=== PATIENT | female | born 1995 | race Two or more races ===

== ENCOUNTER 2024-02-02 01:19 | Emergency (ER) | payer MEDICAID, SELFPAY ==
[2024-02-02 01:24] VITALS: BP 133/86; PULSE 98; RESP 16; TEMP 36.8; O2SAT 97; BMI 22.8
--- NOTE | 2024-02-02 02:30 | ED_ITS ---
HPI - Female Genitourinary General Chief complaint: Vaginal Bleeding Stated complaint: post surg complications Time Seen by Provider: 02/02/24 02:07 Source: patient Mode of arrival: ambulatory Limitations: no limitations History of Present Illness ED Provider: swathi GIRON Narrative: Patient is status post cone biopsy of cervix a week ago noticed blackish discharge for last 3 days with mild cramps no active bleeding no fever no chills Related Data Allergies Allergy/AdvReac Type Severity Reaction Status Date / Time fish derived [fish] AdvReac Facial Verified 02/02/24 01:25 Swelling Review of Systems Review of Systems: Yes all other systems are reviewed and are negative PMFSH Social History Social History Advance Directives: No Advance Directives Information Provided: Yes Do you have a plan to hurt others: No Plan Physical Exam Vital Signs: Vital Signs: Last Vital Signs Temp 98.3 F 02/02/24 01:24 Pulse 98 02/02/24 01:24 Resp 16 02/02/24 01:24 BP 133/86 02/02/24 01:24 Pulse Ox 97 02/02/24 01:24 O2 Del Method Room Air 02/02/24 01:24 BMI result Body Mass Index 22.8 Appearance: Alert. Oriented X3. No acute distress. Eyes: No pallor or icterus ENT: Pharynx normal. Oral Mucosa moist Neck: Normal inspection. Neck supple. CVS: Normal heart rate and rhythm. Pulses normal. Respiratory: No respiratory distress. Equal air entry bilateral, Abdomen: Soft and nontender. Bowel sounds are present, no mass palpable, no CVA tenderness pelvis; blackish post cauterized changes of the cervix no active bleeding Skin: Skin warm and dry. Normal skin color. Normal skin turgor. Extremities: No lower extremity edema. No calf tenderness Neuro: Oriented X 3. Discharge Plan Discharge Clinical Impression: Vaginal bleeding Patient Disposition: Home, Self-Care Instructions: Cervical Cone Biopsy (DC) Additional Instructions: Blackish discharges from the cauterization which was done at the time of biopsy Follow up with your advertising operations manager if you noticed bright red blood/ heavy blood clots Print Language: Turkmen
[2024-02-02 02:44] VITALS: BP 133/86; PULSE 98; RESP 16; TEMP 36.8; O2SAT 97
== END 2024-02-02 02:44 | disposition home or self-care (01) ==
PROVIDERS: Emergency Provider Internal Medicine
DX: N93.9 Abnormal uterine and vaginal bleeding, unspecified (principal)
CPT/HCPCS: 99282

== ENCOUNTER 2024-04-07 16:15 | Emergency (ER) | payer MEDICAID, SELFPAY ==
--- NOTE | ~2024-04-07 | US_ITS ---
EXAMINATION: US PELVIS CLINICAL INFORMATION: Right lower quadrant pain COMPARISON: None available. TECHNIQUE: Ultrasound of the pelvis is performed using both transabdominal and transvaginal transducers along with Doppler. Transvaginal imaging is performed due to inadequate visualization transabdominally. FINDINGS: Uterus: The uterus is anteverted and measures 8 x 4.6 x 5.3 cm cm. The double wall endometrial thickness is 1.1 mm. The uterus is smooth in contour and has normal myometrial echogenicity. No visible fibroid. Adnexa: Both ovaries are visualized. There is normal color flow to the adnexa. There is no ovarian torsion. There is trace fluid in the pelvis adjacent to the right adnexa Right ovary measures 3.6 x 3.2 x 1.9 cm cm. Volume 11.4 mL Left ovary measures 3.2 x 1.6 x 2.1 cm. 5.6 mL US/US pelvic and transvaginal IMPRESSION: No significant abnormality. Electronically signed by: Tevin Catherine MD 04/07/2024 08:56 PM EDT
--- NOTE | ~2024-04-07 | US_ITS ---
EXAMINATION: US PELVIS CLINICAL INFORMATION: Right lower quadrant pain COMPARISON: None available. TECHNIQUE: Ultrasound of the pelvis is performed using both transabdominal and transvaginal transducers along with Doppler. Transvaginal imaging is performed due to inadequate visualization transabdominally. FINDINGS: Uterus: The uterus is anteverted and measures 8 x 4.6 x 5.3 cm cm. The double wall endometrial thickness is 1.1 mm. The uterus is smooth in contour and has normal myometrial echogenicity. No visible fibroid. Adnexa: Both ovaries are visualized. There is normal color flow to the adnexa. There is no ovarian torsion. There is trace fluid in the pelvis adjacent to the right adnexa Right ovary measures 3.6 x 3.2 x 1.9 cm cm. Volume 11.4 mL Left ovary measures 3.2 x 1.6 x 2.1 cm. 5.6 mL US/US pelvic ovarian doppler IMPRESSION: No significant abnormality. Electronically signed by: Tevin Catherine MD 04/07/2024 08:56 PM EDT
--- NOTE | ~2024-04-07 | US_ITS ---
EXAMINATION: US APPENDIX CLINICAL INFORMATION: Right lower quadrant pain and nausea COMPARISON: None TECHNIQUE: Ultrasound of the right lower quadrant was performed. FINDINGS: Appendix is not visualized. No lymphadenopathy or fluid collection identified in the right lower quadrant. Visualized liver and right kidney are within normal limits. US/US appendix IMPRESSION: Nonvisualized appendix. Electronically signed by: Bam Slade DO 04/07/2024 09:00 PM EDT
[2024-04-07 16:35] VITALS: BP 119/83; PULSE 86; RESP 14; TEMP 36.4; O2SAT 99; BMI 22.1
--- NOTE | 2024-04-07 16:36 | ED_ITS ---
HPI - Abdominal Pain General Chief Complaint: Abdominal Pain Stated Complaint: nausea Time Seen by Provider: 04/07/24 17:29 History of Present Illness ED Provider: Ines HPI narrative: 28-year-old female presenting for right lower quadrant abdominal pain and nausea. Patient states her symptoms began yesterday evening around 20:00 with cramping right lower quadrant abdominal pain and subsequent nausea. She denies vomiting, dysuria, hematuria, diarrhea fevers, chills, chest pain. She does endorse approximately 3-4 days of urine frequency. Patient is sexually active. Patient states her last menstrual cycle ended at the beginning of this month Related Data Previous Rx's ?Medication ?Instructions ?Recorded cephalexin 500 mg capsule 500 mg PO QID 7 days #28 caps 04/07/24 Allergies Allergy/AdvReac Type Severity Reaction Status Date / Time fish derived [fish] AdvReac Facial Verified 04/07/24 16:37 Swelling Review of Systems Review of Systems Patient endorses lower quadrant abdominal pain, nausea, urine frequency Yes all other systems are reviewed and are negative [facility] Social History Social History Smoked in Last 30 Days: Yes Use of substances other than those prescribed or required for medical reasons: No Advance Directives: No Advance Directives Information Provided: No Physical Exam ED Vital Signs: Vital Signs - 24 hr 04/07/24 16:35 04/07/24 19:11 04/07/24 21:01 Temperature 97.5 F 97.5 F 97.7 F Pulse Rate 86 74 72 Respiratory Rate 14 18 18 Blood Pressure 119/83 124/82 118/82 Pulse Oximetry 99 99 100 Oxygen Delivery Method Room Air Room Air Room Air BMI result Body Mass Index 22.1 Well-appearing female in no acute distress Lungs clear to auscultation bilaterally; unlabored breathing normal S1-S2 regular rate and rhythm Abdomen is soft, nondistended with right lower quadrant tenderness to palpation; no guarding or rebound Course Course Course Narrative: This is an RME: Additional HPI, ROS, PE not included below will be deferred to primary provider. RME assessment and note performed by: Nicolle Membreno PA-C This is a [id number]-female who presents to the ER with complaints of abdominal cramping since yesterday. urinary frequency and urgency for the last 3-4 days. LMP on 03/19. Reports chance of , possible risk of sti Plan: labs, ua, ct/ng, hcg Medical Decision Making Medical Decision Making MDM Narrative: This is a 20-year-old female presenting for right lower quadrant abdominal pain and nausea. I am concerned for the following; UTI, nephrolithiasis, ovarian cyst/ruptured cyst, gastroenteritis -less likely appendicitis, torsion however will obtain appropriate imaging to rule out these diagnoses -lab work ordered in triage notable for electrolytes within normal limits, normal creatinine, negative HCG, normal white count -I ordered transvaginal ultrasound -I do not appreciate free fluid on patient's appendix and pelvic/transvaginal ultrasound. On radiologist interpretation appendix not visualized however no surrounding lymphadenopathy or fluid collection noted and ovaries were well visualized with good flow -on reassessment patient reports improvement in his symptoms -given lack of white count and labs within normal limits this is less likely appendicitis. I do not feel that patient requires CT imaging -UA concerning for UTI with greater than 50 WBCs -ceftriaxone ordered and I sent a script for Keflex the patient's pharmacy -patient instructed to follow up with her outpatient provider and I gave her strict return precautions Differential Diagnosis Differential Diagnoses: The differential diagnosis associated with the presentation includes Gastroenteritis, UTI, nephrolithiasis, ovarian cyst/ruptured cyst Lab Data 04/07/24 16:47 04/07/24 16:47 Labs: Lab Results 04/07/24 04/07/24 Range/Units 16:47 17:39 WBC 10.0 (4.8-10.8) X10*3/uL RBC 4.23 (4.20-5.50) X10*6/uL Hgb 12.0 (12.0-16.0) g/dl Hct 36.4 L (37.0-47.0) % MCV 86.1 (80.0-98.0) fL MCH 28.4 (27.0-33.0) pg MCHC 33.0 (31.0-35.0) g/dl RDW 14.6 (11.0-16.0) % Plt Count 304 (160-400) X10*3/uL MPV 9.7 (9.4-12.3) fL Immature Gran % (Auto) 0.3 (0.0-0.4) % Neut % (Auto) 66.9 (45-73) % Lymph % (Auto) 25.8 (20-40) % [place] % (Auto) 5.8 (2-11) % Eos % (Auto) 0.9 (0-4) % Baso % (Auto) 0.3 (0-2) % Lymph # (Auto) 2.6 (1.2-4.9) X10*3/uL [place] # (Auto) 0.6 (0.1-1.2) X10*3/uL Eos # (Auto) 0.1 (0.0-0.4) X10*3/uL Baso # (Auto) 0.0 (0.0-0.2) X10*3/uL Abs Immat Gran (auto) 0.03 (0.00-0.03) X10*3/uL Absolute Neuts (auto) 6.7 (2.0-8.3) x10*3/uL Absolute Nucleated RBC 0.000 (0.0-0.012) X10*3/uL Nucleated RBC % (auto) 0.0 (0.0-0.2) /100WBC Sodium 138 (135-145) mmol/L Potassium 4.0 (3.3-5.1) mmol/L Chloride 107 (96-108) mmol/L Carbon Dioxide 24 (22-29) mmol/L Anion Gap 11 L (12-20) BUN 11 (9-16) mg/dL Creatinine 0.68 (0.5-1.4) mg/dL Estim Creat Clear Calc 110.8 Estimated GFR > 60 Random Glucose 93 (60-115) mg/dL Calcium 9.7 (8.4-10.2) mg/dL Total Bilirubin 0.2 (0.0-1.0) mg/dL Direct Bilirubin < 0.2 (0.0-0.5) mg/dL AST 25 (5-31) U/L ALT 13 (0-31) U/L Alkaline Phosphatase 125 H (39-117) U/L Total Protein 7.4 (6.5-8.0) g/dL Albumin 4.1 (3.5-5.0) g/dL Beta HCG, Quant < 2 mIU/mL Urine Color Yellow Urine Appearance Clear Urine pH 6.5 (5.0-9.0) Ur Specific [place] 1.015 (1.005-1.025) Urine Protein Negative (Neg-Trace) mg/dL Urine Glucose (UA) Negative (Negative) mg/dL Urine Ketones Negative (Negative) mg/dL Urine Blood Trace H (Negative) Urine Nitrite Negative (Negative) Ur Leukocyte Esterase Small (1+) H (Negative) Urine RBC 6-10 H (0-2) /HPF Urine WBC >50 H (0-5) /HPF Ur Squamous Epith Cells 0-2 (0-2) /HPF Urine Bacteria None Seen (None Seen) Hyaline Casts 0-2 (0-2) /LPF Chlam trachomat DNA PCR NOT DETECTED (Not Detect.) N.gonorrhoeae DNA (PCR) NOT DETECTED (Not Detect.) Medications Administered Discontinued Medications Generic Name Dose Route Start Last Admin Trade Name Freq PRN Reason Stop Dose Admin Ceftriaxone Sodium 1 gm 04/07/24 21:14 04/07/24 21:24 Ceftriaxone Sodium 1 Gm Vial IVPUSH 04/07/24 21:15 1 gm ONCE ONE Administration Ketorolac Tromethamine 15 mg 04/07/24 17:57 04/07/24 18:08 Ketorolac Tromethamine 15 Mg/Ml Vial IVPUSH 04/07/24 17:58 15 mg ONCE ONE Administration Ondansetron HCl 4 mg 04/07/24 17:57 04/07/24 18:08 Ondansetron Hcl 4 Mg/2 Ml Vial IVPUSH 04/07/24 17:58 4 mg ONCE ONE Administration Discharge Plan Discharge Clinical Impression: Urinary tract infection Patient Disposition: Home, Self-Care Prescriptions: New cephalexin 500 mg capsule 500 mg PO QID 7 Days Qty: 28 0RF Print Language: Moroccan
[2024-04-07 16:55] LABS: MANUAL DIFF FLAG NO
[2024-04-07 16:56] LABS: Basophils Percent Auto 0.3 % (0-2); Eosinophils Absolute Auto 0.1 X10*3/uL (0.0-0.4); Eosinophils Percent Auto 0.9 % (0-4); Hematocrit 36.4 % (37.0-47.0); Imm Gran Abs Auto 0.03 X10*3/uL (0.00-0.03); Imm Gran Pct Auto 0.3 % (0.0-0.4); Lymphocytes Absolute Auto 2.6 X10*3/uL (1.2-4.9); Lymphocytes Percent Auto 25.8 % (20-40); Mean Corpuscular Hemoglobin 28.4 pg (27.0-33.0); Mean Corpuscular Volume 86.1 fL (80.0-98.0); Mean Platelet Volume 9.7 fL (9.4-12.3); Monocytes Absolute Auto 0.6 X10*3/uL (0.1-1.2); Monocytes Percent Auto 5.8 % (2-11); Neutrophils Absolute Auto 6.7 x10*3/uL (2.0-8.3); Neutrophils Percent Auto 66.9 % (45-73); Platelet Count 304 X10*3/uL (160-400); Red Blood Count 4.23 X10*6/uL (4.20-5.50); Red Cell Distribution Width 14.6 % (11.0-16.0)
[2024-04-07 17:20] LABS: Alanine Aminotransferase 13 U/L (0-31); Albumin Level 4.1 g/dL (3.5-5.0); Alkaline Phosphatase 125 U/L (39-117); Anion Gap 11 (12-20); Aspartate Amino Transferase 25 U/L (5-31); Bilirubin Direct < 0.2 mg/dL (0.0-0.5); Bilirubin Total 0.2 mg/dL (0.0-1.0); Blood Urea Nitrogen 11 mg/dL (9-16); Calcium 9.7 mg/dL (8.4-10.2); Carbon Dioxide 24 mmol/L (22-29); Chloride 107 mmol/L (96-108); Creatinine Clr Calc Pharmacy 110.8; Estimated Glomerular Filt Rate > 60; Glucose Random 93 mg/dL (60-115); HCG Quantitative < 2 mIU/mL; Sodium 138 mmol/L (135-145); Total Protein 7.4 g/dL (6.5-8.0)
[2024-04-07 17:51] LABS: Appearance Urine Clear; Color Urine Yellow; Glucose Urine UA Negative (Negative); Leukocyte Esterase Urine Small (1+) (Negative); Nitrite Urine Negative (Negative); PH 6.5 (5.0-9.0); Specific Gravity - Urine 1.015 (1.005-1.025); UMIC TRIGGER UACC YES; Urine Blood Trace (Negative); Urine Ketones Negative (Negative); Urine Protein Negative (Neg-Trace)
[2024-04-07] MEDS: ondansetron HCL 4 MG/2 ML VIAL IVPUSH (18:08)
[2024-04-07] MEDS: Ketorolac Tromethamine 15 MG/ML VIAL IVPUSH (18:08)
[2024-04-07 18:31] LABS: CT PCR NOT DETECTED (Not Detect.); NG PCR NOT DETECTED (Not Detect.)
[2024-04-07 18:34] LABS: Bacteria Urine None Seen (None Seen); Hyaline Casts Urine 0-2 /LPF (0-2); Squamous Epithelial Cell Urine 0-2 /HPF (0-2); UACC Culture Trigger YES; WBC Urine >50 /HPF (0-5)
--- NOTE | 2024-04-07 19:01 | PC.NURSE ---
report received from Gabi RAMOS, assume care of pt at this time
[2024-04-07 19:11] VITALS: BP 124/82; PULSE 74; RESP 18; TEMP 36.4; O2SAT 99
[2024-04-07 21:01] VITALS: BP 118/82; PULSE 72; RESP 18; TEMP 36.5; O2SAT 100
[2024-04-07] MEDS: cefTRIAXone sodium 1 GM VIAL IVPUSH (21:24)
[2024-04-07 22:03] VITALS: BP 118/82; PULSE 72; RESP 18; TEMP 36.2; O2SAT 100
== END 2024-04-07 22:04 | disposition home or self-care (01) ==
PROVIDERS: Physician Assistant Medical; Emergency Provider Student in an Organized Health Care Education/Training Program
DX: N39.0 Urinary tract infection, site not specified (principal); R10.31 Right lower quadrant pain
CPT/HCPCS: 36415; 76705; 76830; 76856; 80048; 80076; 81001; 84702; 85025; 87086; 87491; 87591; 93975; 96374; 96375; 99284; J0696; J1885; J2405

== ENCOUNTER → 2024-04-23 21:56 | Outpatient (BNV) | payer MEDICAID, SELFPAY | PROVIDERS: Emergency Provider Emergency Medicine; Visit Provider Internal Medicine Cardiovascular Disease | DX: R00.0 Tachycardia, unspecified (principal) | CPT/HCPCS: 93010 ==

== ENCOUNTER 2024-04-23 21:57 | Emergency (ER) | payer MEDICAID, SELFPAY ==
--- NOTE | 2024-04-23 | ECG_ITS ---
Test Reason : CHEST PAIN Blood Pressure : / mmHG Vent. Rate : 114 BPM Atrial Rate : 114 BPM P-R Int : 146 ms QRS Dur : 074 ms QT Int : 320 ms P-R-T Axes : 066 076 052 degrees QTc Int : 441 ms Sinus tachycardia Otherwise normal ECG No previous ECGs available Referred By: Generic ED Physician Electronically Signed By:DIONNE LOPEZ MD
--- NOTE | ~2024-04-23 | XR_ITS ---
EXAMINATION: XR CHEST CLINICAL INFORMATION: Chest pain COMPARISON: None available. TECHNIQUE: Frontal view of the chest was obtained. FINDINGS: No significant abnormality is noted involving the heart, lungs, mediastinum, bony thorax or soft tissues. XR/XR chest 1V IMPRESSION: Unremarkable examination. Electronically signed by: Bam Slade DO 04/23/2024 10:55 PM [facility]
[2024-04-23 22:06] VITALS: BP 126/79; PULSE 118; RESP 20; TEMP 36.6; O2SAT 98; BMI 20.7
[2024-04-23 22:23] LABS: MANUAL DIFF FLAG NO
[2024-04-23 22:25] LABS: Basophils Percent Auto 0.3 % (0-2); Eosinophils Absolute Auto 0.2 X10*3/uL (0.0-0.4); Eosinophils Percent Auto 1.5 % (0-4); Hematocrit 38.3 % (37.0-47.0); Hemoglobin 12.9 g/dl (12.0-16.0); Imm Gran Abs Auto 0.03 X10*3/uL (0.00-0.03); Imm Gran Pct Auto 0.2 % (0.0-0.4); Lymphocytes Percent Auto 15.8 % (20-40); Mean Corpuscular HGB Conc 33.7 g/dl (31.0-35.0); Mean Corpuscular Hemoglobin 28.4 pg (27.0-33.0); Mean Corpuscular Volume 84.4 fL (80.0-98.0); Mean Platelet Volume 9.7 fL (9.4-12.3); Monocytes Absolute Auto 0.7 X10*3/uL (0.1-1.2); Monocytes Percent Auto 5.9 % (2-11); Neutrophils Absolute Auto 9.5 x10*3/uL (2.0-8.3); Neutrophils Percent Auto 76.3 % (45-73); Platelet Count 386 X10*3/uL (160-400); Red Blood Count 4.54 X10*6/uL (4.20-5.50); Red Cell Distribution Width 14.9 % (11.0-16.0); White Blood Count 12.4 X10*3/uL (4.8-10.8)
[2024-04-23 22:38] LABS: Alanine Aminotransferase 17 U/L (0-31); Albumin Level 4.2 g/dL (3.5-5.0); Alkaline Phosphatase 124 U/L (39-117); Anion Gap 15 (12-20); Aspartate Amino Transferase 24 U/L (5-31); Bilirubin Total 0.2 mg/dL (0.0-1.0); Blood Urea Nitrogen 11 mg/dL (9-16); Calcium 9.4 mg/dL (8.4-10.2); Carbon Dioxide 25 mmol/L (22-29); Chloride 105 mmol/L (96-108); Creatinine Clr Calc Pharmacy 113.5; Estimated Glomerular Filt Rate > 60; Glucose Random 122 mg/dL (60-115); Potassium 3.7 mmol/L (3.3-5.1); Sodium 141 mmol/L (135-145); Total Protein 7.8 g/dL (6.5-8.0)
[2024-04-23 22:46] LABS: Troponin-I High Sensitivity < 2.7 ng/L (<3.5-17.0)
[2024-04-23 23:01] LABS: Influenza A PCR NEGATIVE (Negative); Influenza B PCR NEGATIVE (Negative); Resp Syncy Virus RNA Qual PCR NEGATIVE (Negative); SARS COV2 PCR INHOUSE NEGATIVE (Negative)
[2024-04-24] VITALS: BP 112/82; PULSE 96; RESP 18; TEMP 36.4; O2SAT 97
--- NOTE | 2024-04-24 00:04 | ED_ITS ---
HPI - Chest Pain General Chief Complaint: Chest Pain Stated Complaint: Chest Pain Time Seen by Provider: 04/24/24 00:04 History of Present Illness ED Provider: Jitendra GIRON narrative: The patient is a 28-year-old female who is generally in fairly good health. She says she has had a cold for about 3 or 4 days. She has been coughing a lot. It is mostly a dry cough. Occasionally she produces a small amount of green sputum. No definite fevers. Tonight she was lying on her bed when she developed a pain in her right upper chest that is worse when she breathes or coughs. She was concerned about this pain and came to the emergency room for evaluation. No pain or swelling in her legs. She is not on control pills or any other hormonal medications. The patient says that she normally lives in [place], [place]. She is currently staying at a group home in this area. She is in the emergency room with her small child. Related Data Previous Rx's ?Medication ?Instructions ?Recorded cephalexin 500 mg capsule 500 mg PO QID 7 days #28 caps 04/07/24 ibuprofen 400 mg tablet 400 mg PO Q6H PRN pain #14 tabs 04/24/24 Allergies Allergy/AdvReac Type Severity Reaction Status Date / Time fish derived [fish] AdvReac Facial Verified 04/23/24 22:08 Swelling Review of Systems 2 Review of Systems: Yes all other systems are reviewed and are negative [facility] Social History Social History Smoked in Last 30 Days: Yes Use of substances other than those prescribed or required for medical reasons: No Advance Directives: No Advance Directives Information Provided: No Do you have a plan to hurt others: No Plan Physical Exam 2 Vital Signs: Vital Signs: Last Vital Signs Temp 97.6 F 04/24/24 00:00 Pulse 107 H 04/24/24 00:38 Resp 18 04/24/24 00:38 BP 112/82 04/24/24 00:00 Pulse Ox 97 04/24/24 00:00 O2 Del Method Room Air 04/24/24 00:00 BMI result Body Mass Index 20.7 Const: Other: The patient is awake, alert, pleasant, cooperative. She does not appear in distress. HEENT: Other: Face is symmetrical. Mucous membranes moist. Eyes: Other: Pupils are round equal, conjunctivae are clear, extraocular movements intact. Neck: Other: No adenopathy. No JVD. Neck is supple. Chest: Other: There is chest wall tenderness to the right upper chest. Palpation seems to reproduce her pain. Resp: Other: Breath sounds seem less full than I would have expected. No ella adventitious sounds however. No wheezes or crackles. I think air entry is generally diminished bilaterally. Cardio: Rate: tachycardic Rhythm: regular rhythm Heart sounds: S1 normal heart sound present and S2 normal heart sound present GI: Other: Abdomen is soft and nontender Skin: Other: Skin is dry and unremarkable Neuro: Other: The patient is awake and alert with a normal mental status. Cranial nerves are grossly intact. She moves her extremities normally and appropriately. Extrem: Other: No calf swelling or tenderness. Medications Administered Discontinued Medications Generic Name Dose Route Start Last Admin Trade Name Freq PRN Reason Stop Dose Admin Albuterol Sulfate 4 puff 04/24/24 00:09 04/24/24 00:33 Albuterol Sulfate 90 Mcg 8 Gm Inhaler INHALE 04/24/24 00:10 4 puff ONCE ONE Administration Medical Decision Making Medical Decision Making [facility] Narrative: The patient is a 28-year-old female who comes to the emergency room with right- sided chest pain that seems reproducible on palpation. She has been having cold symptoms with a cough for about 4 days. She does not have a history of asthma. She was tachycardic. Therefore we did a D-dimer that was undetectable. Her chest x-ray was negative. I suspect that she has some kind of a viral bronchitis. Her breath sounds seemed diminished bilaterally so she was given albuterol with instruction in the use of an MDI (she does not have a known history of asthma). On re-examination her breath sounds seemed somewhat improved following the albuterol. Serology was negative for COVID, influenza, and RSV. test is negative. Given her normal D-dimer and negative chest x-ray I think she may be discharged with a diagnosis of viral bronchitis and with an albuterol inhaler. I will also sent a prescription for ibuprofen to her pharmacy. I think she looks well enough for discharge back to her group home. She should return if she feels worse. Lab Data 04/23/24 22:18 04/23/24 22:18 Labs: Lab Results 04/23/24 04/24/24 Range/Units 22:18 00:22 WBC 12.4 H (4.8-10.8) X10*3/uL RBC 4.54 (4.20-5.50) X10*6/uL Hgb 12.9 (12.0-16.0) g/dl Hct 38.3 (37.0-47.0) % MCV 84.4 (80.0-98.0) fL MCH 28.4 (27.0-33.0) pg MCHC 33.7 (31.0-35.0) g/dl RDW 14.9 (11.0-16.0) % Plt Count 386 D (160-400) X10*3/uL MPV 9.7 (9.4-12.3) fL Immature Gran % (Auto) 0.2 (0.0-0.4) % Neut % (Auto) 76.3 H (45-73) % Lymph % (Auto) 15.8 L (20-40) % [place] % (Auto) 5.9 (2-11) % Eos % (Auto) 1.5 (0-4) % Baso % (Auto) 0.3 (0-2) % Lymph # (Auto) 2.0 (1.2-4.9) X10*3/uL [place] # (Auto) 0.7 (0.1-1.2) X10*3/uL Eos # (Auto) 0.2 (0.0-0.4) X10*3/uL Baso # (Auto) 0.0 (0.0-0.2) X10*3/uL Abs Immat Gran (auto) 0.03 (0.00-0.03) X10*3/uL Absolute Neuts (auto) 9.5 H (2.0-8.3) x10*3/uL Absolute Nucleated RBC 0.000 (0.0-0.012) X10*3/uL Nucleated RBC % (auto) 0.0 (0.0-0.2) /100WBC D-Dimer High Sensitivty < 150 NG/ML Sodium 141 (135-145) mmol/L Potassium 3.7 (3.3-5.1) mmol/L Chloride 105 (96-108) mmol/L Carbon Dioxide 25 (22-29) mmol/L Anion Gap 15 (12-20) BUN 11 (9-16) mg/dL Creatinine 0.72 (0.5-1.4) mg/dL Estim Creat Clear Calc 113.5 Estimated GFR > 60 Random Glucose 122 H (60-115) mg/dL Calcium 9.4 (8.4-10.2) mg/dL Total Bilirubin 0.2 (0.0-1.0) mg/dL AST 24 (5-31) U/L ALT 17 (0-31) U/L Alkaline Phosphatase 124 H (39-117) U/L Troponin I High Sens < 2.7 (<3.5-17.0) ng/L C-Reactive Protein 1.55 H (< or = 0.50) mg/dL Total Protein 7.8 (6.5-8.0) g/dL Albumin 4.2 (3.5-5.0) g/dL Beta HCG, Quant < 2 mIU/mL Influenza Type A (PCR) NEGATIVE (Negative) Influenza Type B (PCR) NEGATIVE (Negative) RSV RNA Qual (PCR) NEGATIVE (Negative) SARS-CoV-2 RNA (RT-PCR) NEGATIVE (Negative) Independent Interpretation I performed an independent interpretation of an: EKG Interpretation: EKG at 21:56 shows sinus tachycardia at 114 beats per minute. It is an otherwise normal EKG. Discharge Plan Discharge Clinical Impression: Acute chest wall pain, Acute bronchitis, viral Patient Disposition: Home, Self-Care Instructions: Acute Bronchitis (ED), How to Use a Metered-Dose Inhaler and a Spacer (ED) Additional Instructions: I think the pain in your right chest is from a pulled muscle likely from coughing. I think you have a bad chest cold that should get better on its own in a few days. Please use the albuterol provided. Use the albuterol with the spacer device (AeroChamber). Take 2 puffs every 4-6 hours as needed for coughing. You may use ibuprofen as needed for pain. You may also take acetaminophen (Tylenol) if you have any available. Drink lot of fluids. Return to the emergency room if significantly worse. Prescriptions: New ibuprofen 400 mg tablet 400 mg PO Q6H PRN (Reason: pain) Qty: 14 0RF No Action cephalexin 500 mg capsule 500 mg PO QID 7 Days Qty: 28 0RF Print Language: Lao
[2024-04-24 00:21] LABS: C Reactive Protein 1.55 mg/dL (< or = 0.50)
[2024-04-24 00:32] LABS: HCG Quantitative < 2 mIU/mL
[2024-04-24] MEDS: Albuterol Sulfate 90 MCG 8 GM INHALER 4 PUFF INHALE (00:33)
[2024-04-24 00:38] VITALS: PULSE 107; RESP 18; O2SAT 98
[2024-04-24 00:55] LABS: D Dimer High Sensitivity < 150 NG/ML
[2024-04-24] MEDS: Ibuprofen 400 MG TABLET PO (01:07)
[2024-04-24] MEDS: Acetaminophen 325 MG TABLET 975 MG PO (01:07)
[2024-04-24 01:13] VITALS: BP 131/80; PULSE 108; RESP 16; TEMP -17.7; TEMP 0; O2SAT 99
== END 2024-04-24 01:14 | disposition home or self-care (01) ==
PROVIDERS: Emergency Provider Emergency Medicine
DX: R07.89 Other chest pain (principal); J20.8 Acute bronchitis due to other specified organisms; Z03.818 Encounter for observation for suspected exposure to other biological agents ruled out; R05.9 Cough, unspecified; R00.0 Tachycardia, unspecified
CPT/HCPCS: 0241U; 36415; 71045; 80053; 84484; 84702; 85025; 85379; 86140; 93005; 94640; 99284; 99285

== ENCOUNTER 2024-10-24 14:22 | Emergency (ER) | payer MEDICAID, SELFPAY ==
[2024-10-24 14:35] VITALS: BP 118/86; PULSE 70; RESP 18; TEMP 36.6; O2SAT 98; BMI 20.3
--- NOTE | 2024-10-24 14:35 | ED_ITS ---
HPI - General Adult General Chief complaint: Abdominal Pain Stated complaint: abd pain hasn't eatten in week Time Seen by Provider: 10/24/24 16:21 Source: patient, RN notes reviewed and old records reviewed Mode of arrival: ambulatory Limitations: no limitations History of Present Illness ED Provider: Alanis HPI narrative: Patient is a 28-year-old female presenting to the emergency department with complaint of epigastric pain and associated nausea and vomiting for the past 2 weeks. States that symptoms are worse in the morning. Nausea and vomiting are exacerbated by eating. Denies prior abdominal surgeries. States emesis is food contents, at times yellow, denies hematemesis. Denies fevers. Denies diarrhea. Has not used any [id number] medications for her symptoms. MD complaint: epigastric pain Onset (ago): week(s) Location: abdomen Radiation: non-radiation Severity: severe Quality: sharp Pain Consistency: colicky Exacerbating factors: eating Associated symptoms: denies other symptoms Treatments prior to arrival: none Related Data Previous Rx's ?Medication ?Instructions ?Recorded cephalexin 500 mg capsule 500 mg PO QID 7 days #28 caps 04/07/24 ibuprofen 400 mg tablet 400 mg PO Q6H PRN pain #14 tabs 04/24/24 famotidine 20 mg tablet 20 mg PO DAILY #14 tabs 10/24/24 ondansetron 4 mg disintegrating 4 mg PO Q8H PRN nausea and 10/24/24 tablet vomiting #10 tabs Allergies Allergy/AdvReac Type Severity Reaction Status Date / Time fish derived [fish] AdvReac Facial Verified 10/24/24 14:39 Swelling Review of Systems 2 Review of Systems: As per HPI Yes all other systems are reviewed and are negative Constitutional: Constitutional: Reports as per HPI [facility] Social History Social History Advance Directives: No Advance Directives Information Provided: No Do you have a plan to hurt others: No Plan Physical Exam ED Vital Signs: Vital Signs - 24 hr 10/24/24 14:35 Temperature 98 F Pulse Rate 70 Respiratory Rate 18 Blood Pressure 118/86 Pulse Oximetry 98 Oxygen Delivery Method Room Air BMI result Body Mass Index 20.3 Vital signs have been reviewed and appear to be correct. Blood pressure normal. Heart rate normal. Respiratory rate normal. Temperature normal. Oxygen saturation normal. Const General: cooperative, healthy appearing and no acute distress Orientation/consciousness: oriented to person, oriented to place, oriented to time and patient oriented x3 Limitations: no limitations HENMT Head: Yes normocephalic and Yes atraumatic Ears: external ears normal General nose exam: Normal external nose present Face and sinus: Yes face symmetric Mouth: oropharynx normal and moist mucous membranes Throat: Yes uvula midline Eyes Pupils: Equal, round and reactive pupils present Neck Neck: Yes normal visual inspection and Yes supple Resp Effort & Inspection: normal respiratory effort and able to speak in complete sentences Auscultation: clear to auscultation bilaterally Cardio Rate: regular rate Rhythm: regular rhythm Heart sounds: S1 normal heart sound present and S2 normal heart sound present GI Palpation (GI): Soft to palpation, nontender, no guarding and No Rebound tenderness present Auscultation: normoactive bowel sounds General: Yes no CVA tenderness Back/Spine/Pelvis Back: no CVA tenderness Skin General skin exam: elasticity normal and turgor normal Neuro General: oriented to person, oriented to place, oriented to time, patient oriented x3, moves all extremities, no focal motor deficits and CN's II-XI intact bilaterally Cranial nerves: Yes Equal, round and reactive pupils present Cognition (Neuro): normal cognition Extrem General: Yes full ROM, Yes no pedal edema and Yes no calf tenderness Psych Mental Status: mental status grossly normal Affect: normal affect Thought process: Normal thought process present Course Course Course Narrative: RME performed by Beatriz Wilcox PA-C. Patient is a 28 year old assigned female at presenting to the emergency department with epigastric pain. Detailed physical exam and review of systems are deferred to the eap clinician. Labs and swabs ordered. Patient placed back in the waiting room pending room availability and results. Medications Administered Discontinued Medications Generic Name Dose Route Start Last Admin Trade Name Freq PRN Reason Stop Dose Admin Al Hydroxide/Mg Hydroxide 30 ml 10/24/24 16:42 10/24/24 16:56 Magnesium Hydrox/Alum Hydrox 30 Ml Oral.Susp PO 10/24/24 16:43 30 ml ONCE ONE Administration Lidocaine HCl 15 ml 10/24/24 16:42 10/24/24 16:56 Lidocaine Hcl Viscous 2 % 15 Ml Solution MUCOUS MEM 10/24/24 16:43 15 ml ONCE ONE Administration Medical Decision Making Medical Decision Making [facility] Narrative: Patient is a 28-year-old female presenting to the emergency department with complaint of epigastric pain and associated nausea and vomiting for the past 2 weeks. On exam patient is awake, A+Ox3, VS WNL, afebrile, normal neurological exam without focal deficits, physical exam findings as above. Given reported symptoms and physical exam findings, initial differential includes but is not limited to gastritis, GERD, PUD. Do not suspect cholecystitis. Labs notable for mild anemia not at transfusable level, otherwise unremarkable. Viral panel negative. Treated with GI cocktail in the ED with improvement in symptoms. Will discharge on famotidine, advised can also use OTC Maalox. Will refer to GI for further evaluation and management. Return precautions discussed. Patient verbalized understanding of and agreement with plan. Differential Diagnosis Differential Diagnoses: The differential diagnosis associated with the presentation includes as per doctors hospital Admission/Observation Consideration of admission/observation: Escalation of care including admission/observation considered Patient would have been admitted to the hospital had their work up had any findings where hospital admission was appropriate and their clinical presentation warranted hospital admission. Lab Data [facility] Lab Attestation statement: I reviewed the patient's lab results. as per doctors hospital 10/24/24 14:48 10/24/24 14:48 Labs: Lab Results 10/24/24 Range/Units 14:48 WBC 7.0 (4.8-10.8) X10*3/uL RBC 4.21 (4.20-5.50) X10*6/uL Hgb 11.7 L (12.0-16.0) g/dl Hct 35.5 L (37.0-47.0) % MCV 84.3 (80.0-98.0) fL MCH 27.8 (27.0-33.0) pg MCHC 33.0 (31.0-35.0) g/dl RDW 16.0 (11.0-16.0) % Plt Count 360 (160-400) X10*3/uL MPV 10.2 (9.4-12.3) fL Immature Gran % (Auto) 0.1 (0.0-0.4) % Neut % (Auto) 56.4 (45-73) % Lymph % (Auto) 34.6 (20-40) % Creek % (Auto) 6.9 (2-11) % Eos % (Auto) 1.4 (0-4) % Baso % (Auto) 0.6 (0-2) % Lymph # (Auto) 2.4 (1.2-4.9) X10*3/uL Creek # (Auto) 0.5 (0.1-1.2) X10*3/uL Eos # (Auto) 0.1 (0.0-0.4) X10*3/uL Baso # (Auto) 0.0 (0.0-0.2) X10*3/uL Abs Immat Gran (auto) 0.01 (0.00-0.03) X10*3/uL Absolute Neuts (auto) 3.9 (2.0-8.3) x10*3/uL Absolute Nucleated RBC 0.000 (0.0-0.012) X10*3/uL Nucleated RBC % (auto) 0.0 (0.0-0.2) /100WBC Sodium 140 (135-145) mmol/L Potassium 3.6 (3.3-5.1) mmol/L Chloride 107 (96-108) mmol/L Carbon Dioxide 20 L (22-29) mmol/L Anion Gap 17 (12-20) BUN 11 (9-16) mg/dL Creatinine 0.66 (0.5-1.4) mg/dL Estim Creat Clear Calc 114.2 Estimated GFR > 60 Random Glucose 103 (60-115) mg/dL Calcium 9.2 (8.4-10.2) mg/dL Magnesium 1.8 (1.6-2.6) mg/dL Total Bilirubin 0.6 (0.0-1.0) mg/dL AST 26 (5-31) U/L ALT 13 (0-31) U/L Alkaline Phosphatase 103 (39-117) U/L Total Protein 7.6 (6.5-8.0) g/dL Albumin 4.4 (3.5-5.0) g/dL Beta HCG, Quant < 2 mIU/mL Urine Color Yellow Urine Appearance Cloudy Urine pH 6.0 (5.0-9.0) Ur Specific Dixon 1.025 (1.005-1.025) Urine Protein Trace (Neg-Trace) mg/dL Urine Glucose (UA) Negative (Negative) mg/dL Urine Ketones 15 (Negative) mg/dL Urine Blood Moderate (2+) H (Negative) Urine Nitrite Negative (Negative) Ur Leukocyte Esterase Negative (Negative) Urine RBC 11-20 H (0-2) /HPF Urine WBC 0-5 (0-5) /HPF Ur Squamous Epith Cells 6-10 (0-2) /HPF Urine Bacteria 4+ (None Seen) Hyaline Casts 0-2 (0-2) /LPF Influenza Type A (PCR) NEGATIVE (Negative) Influenza Type B (PCR) NEGATIVE (Negative) RSV RNA Qual (PCR) NEGATIVE (Negative) SARS-CoV-2 RNA (RT-PCR) NEGATIVE (Negative) External Record Review External record reviewed: Inpatient record, Office record and Outpatient record Prescription Management I considered prescription management with: Other Discharge Plan Discharge Clinical Impression: Acute epigastric pain, Nausea & vomiting Patient Disposition: Home, Self-Care Instructions: GERD (Gastroesophageal Reflux Disease) (DC), Epigastric Pain (ED), Upper Endoscopy (DC) Additional Instructions: You have been evaluated in the emergency department today for abdominal pain. Your evaluation did not show evidence of medical conditions requiring emergent intervention at this time. You are being prescribed a medication to control the acid in her stomach called famotidine. You are being prescribed ondansetron which you can use every 8 hours as needed for nausea or vomiting. You can also use [id number] Maalox as per package instructions. We recommend that you follow-up with a machine erector for further evaluation and management of your symptoms. Call their office, they will not call you. Please schedule an appointment with your primary care physician. Return to the emergency department if you experience worsening or uncontrolled pain, fevers 100.4? F or greater, recurrent vomiting, inability to tolerate food or fluids by mouth, bloody stools or vomit, black or tarry stools, or any other concerning symptoms. Prescriptions: New famotidine 20 mg tablet 20 mg PO DAILY Qty: 14 0RF ondansetron 4 mg tablet,disintegrating 4 mg PO Q8H PRN (Reason: nausea and vomiting) Qty: 10 0RF No Action ibuprofen 400 mg tablet 400 mg PO Q6H PRN (Reason: pain) Qty: 14 0RF cephalexin 500 mg capsule 500 mg PO QID 7 Days Qty: 28 0RF Ref[place]: [facility] [place]Provider Group] - 2 weeks (epigastric pain, n/v) Print Language: Persian
[2024-10-24 15:06] LABS: Basophils Percent Auto 0.6 % (0-2); Eosinophils Absolute Auto 0.1 X10*3/uL (0.0-0.4); Eosinophils Percent Auto 1.4 % (0-4); Hematocrit 35.5 % (37.0-47.0); Hemoglobin 11.7 g/dl (12.0-16.0); Imm Gran Abs Auto 0.01 X10*3/uL (0.00-0.03); Imm Gran Pct Auto 0.1 % (0.0-0.4); Lymphocytes Absolute Auto 2.4 X10*3/uL (1.2-4.9); Lymphocytes Percent Auto 34.6 % (20-40); MANUAL DIFF FLAG NO; Mean Corpuscular Hemoglobin 27.8 pg (27.0-33.0); Mean Corpuscular Volume 84.3 fL (80.0-98.0); Mean Platelet Volume 10.2 fL (9.4-12.3); Monocytes Absolute Auto 0.5 X10*3/uL (0.1-1.2); Monocytes Percent Auto 6.9 % (2-11); Neutrophils Absolute Auto 3.9 x10*3/uL (2.0-8.3); Neutrophils Percent Auto 56.4 % (45-73); Platelet Count 360 X10*3/uL (160-400); Red Blood Count 4.21 X10*6/uL (4.20-5.50)
[2024-10-24 15:12] LABS: Appearance Urine Cloudy; Color Urine Yellow; Glucose Urine UA Negative (Negative); Leukocyte Esterase Urine Negative (Negative); Nitrite Urine Negative (Negative); Specific Gravity - Urine 1.025 (1.005-1.025); UMIC TRIGGER UACC YES; Urine Blood Moderate (2+) (Negative); Urine Ketones 15 mg/dL (Negative); Urine Protein Trace mg/dL (Neg-Trace)
[2024-10-24 15:17] LABS: Bacteria Urine 4+ (None Seen); Hyaline Casts Urine 0-2 /LPF (0-2); WBC Urine 0-5 /HPF (0-5)
[2024-10-24 15:32] LABS: Alanine Aminotransferase 13 U/L (0-31); Albumin Level 4.4 g/dL (3.5-5.0); Alkaline Phosphatase 103 U/L (39-117); Anion Gap 17 (12-20); Aspartate Amino Transferase 26 U/L (5-31); Bilirubin Total 0.6 mg/dL (0.0-1.0); Blood Urea Nitrogen 11 mg/dL (9-16); Calcium 9.2 mg/dL (8.4-10.2); Carbon Dioxide 20 mmol/L (22-29); Chloride 107 mmol/L (96-108); Creatinine Clr Calc Pharmacy 114.2; Estimated Glomerular Filt Rate > 60; Glucose Random 103 mg/dL (60-115); HCG Quantitative < 2 mIU/mL; Magnesium 1.8 mg/dL (1.6-2.6); Potassium 3.6 mmol/L (3.3-5.1); Sodium 140 mmol/L (135-145); Total Protein 7.6 g/dL (6.5-8.0)
[2024-10-24 15:42] LABS: Influenza A PCR NEGATIVE (Negative); Influenza B PCR NEGATIVE (Negative); Resp Syncy Virus RNA Qual PCR NEGATIVE (Negative); SARS COV2 PCR INHOUSE NEGATIVE (Negative)
[2024-10-24] MEDS: Magnesium Hydrox/Alum Hydrox 30 ML ORAL.SUSP PO (16:56)
[2024-10-24] MEDS: Lidocaine HCl Viscous 2 % 15 ML SOLUTION MUCOUS MEM (16:56)
[2024-10-24 17:29] VITALS: BP 129/68; PULSE 76; RESP 14; TEMP 36.2; O2SAT 96
== END 2024-10-24 17:31 | disposition home or self-care (01) ==
PROVIDERS: Physician Assistant Medical; Emergency Provider Emergency Medicine Emergency Medical Services
DX: R10.13 Epigastric pain (principal); R10.2 Pelvic and perineal pain; R11.2 Nausea with vomiting, unspecified; Z03.818 Encounter for observation for suspected exposure to other biological agents ruled out; Z79.899 Other long term (current) drug therapy
CPT/HCPCS: 0241U; 80053; 81001; 83735; 84702; 85025; 99282; 99283